=== PATIENT | male | born 1995 | race Caucasian/White ===

== ENCOUNTER 2017-03-15 19:03 | Inpatient (IN) | payer BC ==
[~2017-03-15] VITALS: Ht 180.3 cm; Wt 77.3 kg
[2017-03-15 19:05] VITALS: BP 143/72; PULSE 70; RESP 20; TEMP 98.9; O2SAT 100
[2017-03-15 19:15] VITALS: BP 132/60; PULSE 63; RESP 18; O2SAT 97
--- NOTE | 2017-03-15 19:20 | PD ---
HPI . took 10 baclofen to get high/now with nausea and vomiting Chief Complaint: GI Complaint Time Seen by Provider: 19:14 Travel History International Travel<30 days: No Contact w/Intl Traveler<30days: No Traveled to known affect area: No History of Present Illness HPI 21-year-old male with no significant past medical history here after ingesting about 10 baclofen pills in an attempt to get high. He developed some nausea and vomiting and was brought into the emergency department by his fiance. She tells me that initially around 4 PM when she returned home from work that he was lethargic. Now he is awake and alert and able to tell me that he took this and attempt to get high. He took 10 tabs of 10mg baclofen. He denies any suicide attempt. Denies any depression. Denies any homicidal ideation. He tells me the prescription was approximately 2 years old. PFSH Past Medical History Autoimmune Disease: Yes (alps) Social History Alcohol Use: Yes (occ) Tobacco Use: No Substance Use: No Allergies-Medications (Allergen,Severity, Reaction): Coded Allergies: No Known Allergies (Unverified , 03/15/17) Reported Meds & Prescriptions Reported Meds & Active Scripts Active No Active Prescriptions or Reported Medications Review of Systems General / Constitutional: No: Fever Eyes: No: Visual changes HENT: No: Headaches Cardiovascular: No: Chest Pain or Discomfort Respiratory: No: Shortness of Breath Gastrointestinal: Positive: Nausea, Vomiting, No: Abdominal Pain Genitourinary: No: Dysuria Musculoskeletal: No: Pain Skin: No Rash Neurologic: No: Weakness Psychiatric: No: Depression Endocrine: No: Polydipsia Hematologic/Lymphatic: No: Easy Bruising Physical Exam Narrative GENERAL: AAO x 3, no acute distress, Well-nourished, well-developed patient. SKIN: Warm and dry. No visible rashes or bruising. HEAD: Normocephalic and atraumatic. EYES: No scleral icterus. No injection or drainage. EOM intact, PERRLA, ENT: No nasal drainage noted. Mucous membranes pink. Airway patent. mild- moderate posterior pharynx erythema, NECK: Supple, trachea midline. No JVD. CARDIOVASCULAR: Regular rate and rhythm without murmurs, gallops, or rubs. RESPIRATORY: Breath sounds equal bilaterally. No accessory muscle use. No rhonchi or rales. GASTROINTESTINAL: Abdomen soft, non-tender, nondistended. EXTREMITIES: No cyanosis or edema. NEURO: CN 2 through 12 intact BACK: Nontender without obvious deformity. No CVA tenderness. PSYCH: AAO x 3, normal affect. Data Data Last Documented VS Vital Signs Date Time Temp Pulse Resp B/P Pulse Ox O2 Delivery O2 Flow Rate FiO2 03/15/17 19:44 62 18 130/77 100 Room Air 03/15/17 19:05 98.9 Orders Electrocardiogram (03/15/17 19:20) Complete Blood Count With Diff (03/15/17 19:20) Comprehensive Metabolic Panel (03/15/17 19:20) Prothrombin Time / Inr (Pt) (03/15/17 19:20) Act Partial Throm Time (Ptt) (03/15/17 19:20) Drug Screen, Random Urine (03/15/17 19:20) Alcohol (Ethanol) (03/15/17 19:20) Salicylates (Aspirin) (03/15/17 19:20) Tylenol (Acetaminophen) (03/15/17 19:20) Iv Access Insert/Monitor (03/15/17 19:24) Sodium Chlor 0.9% 1000 Ml Inj (Ns 1000 M (03/15/17 19:30) Ecg Monitoring (03/15/17 19:31) Bilateral Bp Monitoring (03/15/17 19:31) Oximetry (03/15/17 19:31) Labs Laboratory Tests Test 03/15/17 19:42 White Blood Count 12.3 TH/MM3 Red Blood Count 4.94 MIL/MM3 Hemoglobin 14.9 GM/DL Hematocrit 44.0 % Mean Corpuscular Volume 89.1 FL Mean Corpuscular Hemoglobin 30.1 PG Mean Corpuscular Hemoglobin 33.8 % Concent Red Cell Distribution Width 14.1 % Platelet Count 197 TH/MM3 Mean Platelet Volume 8.5 FL Neutrophils (%) (Auto) 89.0 % Lymphocytes (%) (Auto) 6.1 % Monocytes (%) (Auto) 4.7 % Eosinophils (%) (Auto) 0.1 % Basophils (%) (Auto) 0.1 % Neutrophils # (Auto) 11.0 TH/MM3 Lymphocytes # (Auto) 0.8 TH/MM3 Monocytes # (Auto) 0.6 TH/MM3 Eosinophils # (Auto) 0.0 TH/MM3 Basophils # (Auto) 0.0 TH/MM3 CBC Comment DIFF FINAL Differential Comment Prothrombin Time 11.4 SEC Prothromb Time International 1.0 RATIO Ratio Activated Partial 24.0 SEC Thromboplast Time Sodium Level 140 MEQ/L Potassium Level 4.3 MEQ/L Chloride Level 104 MEQ/L Carbon Dioxide Level 26.9 MEQ/L Anion Gap 9 MEQ/L Blood Urea Nitrogen 15 MG/DL Creatinine 1.02 MG/DL Estimat Glomerular Filtration 91 ML/MIN Rate Random Glucose 143 MG/DL Calcium Level 9.3 MG/DL Total Bilirubin 0.5 MG/DL Aspartate Amino Transf 25 U/L (AST/SGOT) Alanine Aminotransferase 28 U/L (ALT/SGPT) Alkaline Phosphatase 91 U/L Total Protein 8.6 GM/DL Albumin 4.8 GM/DL Salicylates Level 2.9 MG/DL Acetaminophen Level LESS THAN 2.0 MCG/ML Ethyl Alcohol Level LESS THAN 3 MG/DL MDM Medical Decision Making Medical Screen Exam Complete: Yes Emergency Medical Condition: Yes Medical Record Reviewed: Yes Differential Diagnosis drug overdose, substance abuse, Narrative Course 21 yr old male here after taking 10 tabs of baclofen in an attempt to get high. He is here because he had nausea and vomiting. He is accompanied by his fiance who reports he was very sleepy and lethargic, but now seems a little more alert. He is conversant and responds appropriately. Poison control states patient needs to be monitored for 6 hours after he is completely asymptomatic as he can go into respiratory distress. He will need to be transferred to ICU for close monitoring. Labs have been ordered. He is being monitored. 2020: patient in room, no distress, vitals are WNL Labs are still pending. I have discussed the case with Dr. Lake. 2037: Dr Lake discussed with Dr. Tapia. who has accepted the patient. He will be transferred to the ICU. Laboratory Tests Test 03/15/17 19:42 White Blood Count 12.3 TH/MM3 Red Blood Count 4.94 MIL/MM3 Hemoglobin 14.9 GM/DL Hematocrit 44.0 % Mean Corpuscular Volume 89.1 FL Mean Corpuscular Hemoglobin 30.1 PG Mean Corpuscular Hemoglobin 33.8 % Concent Red Cell Distribution Width 14.1 % Platelet Count 197 TH/MM3 Mean Platelet Volume 8.5 FL Neutrophils (%) (Auto) 89.0 % Lymphocytes (%) (Auto) 6.1 % Monocytes (%) (Auto) 4.7 % Eosinophils (%) (Auto) 0.1 % Basophils (%) (Auto) 0.1 % Neutrophils # (Auto) 11.0 TH/MM3 Lymphocytes # (Auto) 0.8 TH/MM3 Monocytes # (Auto) 0.6 TH/MM3 Eosinophils # (Auto) 0.0 TH/MM3 Basophils # (Auto) 0.0 TH/MM3 CBC Comment DIFF FINAL Differential Comment Prothrombin Time 11.4 SEC Prothromb Time International 1.0 RATIO Ratio Activated Partial 24.0 SEC Thromboplast Time Sodium Level 140 MEQ/L Potassium Level 4.3 MEQ/L Chloride Level 104 MEQ/L Carbon Dioxide Level 26.9 MEQ/L Anion Gap 9 MEQ/L Blood Urea Nitrogen 15 MG/DL Creatinine 1.02 MG/DL Estimat Glomerular Filtration 91 ML/MIN Rate Random Glucose 143 MG/DL Calcium Level 9.3 MG/DL Total Bilirubin 0.5 MG/DL Aspartate Amino Transf 25 U/L (AST/SGOT) Alanine Aminotransferase 28 U/L (ALT/SGPT) Alkaline Phosphatase 91 U/L Total Protein 8.6 GM/DL Albumin 4.8 GM/DL Salicylates Level 2.9 MG/DL Acetaminophen Level LESS THAN 2.0 MCG/ML Ethyl Alcohol Level LESS THAN 3 MG/DL Diagnosis Primary Impression: Drug overdose Qualified Code: T50.904A - Drug overdose, undetermined intent, initial encounter Admitting Information Admitting Physician Requests: Admit Scripts No Active Prescriptions or Reported Meds Condition: Stable Patrizia Bonilla March 15, 2017 19:20
[2017-03-15] MEDS ORDERED: SODIUM CHLOR 0.9% 1000 ML INJ 1,000 ML IV ONE (19:30)
[2017-03-15 19:44] VITALS: BP 130/77; PULSE 62; RESP 18; O2SAT 100
[2017-03-15 19:54] LABS: BASOPHIL % 0.1 % (0.0-2.0); EOSINOPHIL % 0.1 % (0.0-4.0); HEMO FLAGS DIFF FINAL; LYMPH % 6.1 % (9.0-44.0); LYMPHOCYTE # 0.8 TH/MM3 (1.0-4.8); MEAN CELL VOLUME 89.1 FL (80.0-100.0); MEAN CORPUSCULAR HEMOGLOBIN 30.1 PG (27.0-34.0); MEAN CORPUSCULAR HGB CONC 33.8 % (32.0-36.0); MONO % 4.7 % (0.0-8.0); PLATELET COUNT 197 TH/MM3 (150-450); RED BLOOD COUNT 4.94 MIL/MM3 (4.50-5.90); RED CELL DISTRIBUTION WIDTH 14.1 % (11.6-17.2); WHITE BLOOD COUNT 12.3 TH/MM3 (4.0-11.0)
[2017-03-15 20:11] LABS: PROTHROMBIN TIME - PATIENT 11.4 SEC (9.8-11.6)
[2017-03-15 20:19] LABS: ANION GAP 9 MEQ/L (5-15)
[2017-03-15 20:22] LABS: ALKALINE PHOSPHATASE 91 U/L (45-117); ALT (GPT) 28 U/L (12-78); AST (GOT) 25 U/L (15-37); BICARBONATE 26.9 MEQ/L (21.0-32.0); BLOOD UREA NITROGEN 15 MG/DL (7-18); CHLORIDE 104 MEQ/L (98-107); GLOMERULAR FILTRATION RATE 91 ML/MIN (>89); POTASSIUM 4.3 MEQ/L (3.5-5.1); SODIUM (NA) 140 MEQ/L (136-145); TOTAL BILIRUBIN ADULT 0.5 MG/DL (0.2-1.0)
[2017-03-15 20:29] LABS: ACETAMINOPHEN LESS THAN 2.0 MCG/ML (10.0-30.0)
--- NOTE | 2017-03-15 20:40 | PD ---
Data Data Last Documented VS Vital Signs Date Time Temp Pulse Resp B/P Pulse Ox O2 Delivery O2 Flow Rate FiO2 03/15/17 19:44 62 18 130/77 100 Room Air 03/15/17 19:05 98.9 Orders Electrocardiogram (03/15/17 19:20) Complete Blood Count With Diff (03/15/17 19:20) Comprehensive Metabolic Panel (03/15/17 19:20) Prothrombin Time / Inr (Pt) (03/15/17 19:20) Act Partial Throm Time (Ptt) (03/15/17 19:20) Drug Screen, Random Urine (03/15/17 19:20) Alcohol (Ethanol) (03/15/17 19:20) Salicylates (Aspirin) (03/15/17 19:20) Tylenol (Acetaminophen) (03/15/17 19:20) Iv Access Insert/Monitor (03/15/17 19:24) Sodium Chlor 0.9% 1000 Ml Inj (Ns 1000 M (03/15/17 19:30) Ecg Monitoring (03/15/17 19:31) Bilateral Bp Monitoring (03/15/17 19:31) Oximetry (03/15/17 19:31) Labs Laboratory Tests Test 03/15/17 19:42 White Blood Count 12.3 TH/MM3 Red Blood Count 4.94 MIL/MM3 Hemoglobin 14.9 GM/DL Hematocrit 44.0 % Mean Corpuscular Volume 89.1 FL Mean Corpuscular Hemoglobin 30.1 PG Mean Corpuscular Hemoglobin 33.8 % Concent Red Cell Distribution Width 14.1 % Platelet Count 197 TH/MM3 Mean Platelet Volume 8.5 FL Neutrophils (%) (Auto) 89.0 % Lymphocytes (%) (Auto) 6.1 % Monocytes (%) (Auto) 4.7 % Eosinophils (%) (Auto) 0.1 % Basophils (%) (Auto) 0.1 % Neutrophils # (Auto) 11.0 TH/MM3 Lymphocytes # (Auto) 0.8 TH/MM3 Monocytes # (Auto) 0.6 TH/MM3 Eosinophils # (Auto) 0.0 TH/MM3 Basophils # (Auto) 0.0 TH/MM3 CBC Comment DIFF FINAL Differential Comment Prothrombin Time 11.4 SEC Prothromb Time International 1.0 RATIO Ratio Activated Partial 24.0 SEC Thromboplast Time Sodium Level 140 MEQ/L Potassium Level 4.3 MEQ/L Chloride Level 104 MEQ/L Carbon Dioxide Level 26.9 MEQ/L Anion Gap 9 MEQ/L Blood Urea Nitrogen 15 MG/DL Creatinine 1.02 MG/DL Estimat Glomerular Filtration 91 ML/MIN Rate Random Glucose 143 MG/DL Calcium Level 9.3 MG/DL Total Bilirubin 0.5 MG/DL Aspartate Amino Transf 25 U/L (AST/SGOT) Alanine Aminotransferase 28 U/L (ALT/SGPT) Alkaline Phosphatase 91 U/L Total Protein 8.6 GM/DL Albumin 4.8 GM/DL Salicylates Level 2.9 MG/DL Acetaminophen Level LESS THAN 2.0 MCG/ML Ethyl Alcohol Level LESS THAN 3 MG/DL MDM Supervised Visit with HALLE: Yes Narrative Course I, Dr. Lake, have reviewed the advance practice practitioner's documentation and am in agreement, met with the patient face to face, made the diagnosis, and the medical decision making was done by me. See her note for further details. Briefly this is a 21-year-old male who is here by private vehicle after intentionally taking between 100 and 200 mg of baclofen and around 4:00 PM today. The patient reports that he took the medication because he wanted to get high. He denies suicidal ideation. He denies any coingestions. He states he feels tired. Poison control was contacted, and amongst checking usual overdose labs, they recommended observing the patient for 6 hours after the patient is completely asymptomatic. Labs reviewed. Tylenol and alcohol levels are negative. On exam the patient is snoring, as easily arousable, however midsentence the patient falls back asleep. Because of this he'll need to be admitted to a monitored setting. Case discussed with water valve repairer Dr. Tapia who will admit the patient to his service. Diagnosis Primary Impression: Drug overdose Qualified Code: T50.904A - Drug overdose, undetermined intent, initial encounter Scripts No Active Prescriptions or Reported Meds Condition: Dominick Brock MD March 15, 2017 20:40
[2017-03-15 20:46] VITALS: BP 117/58; PULSE 55; RESP 16; O2SAT 99
[2017-03-15] MEDS ORDERED: BISACODYL 10 MG SUPP RECTAL PRN (21:15)
[2017-03-15] MEDS ORDERED: SODIUM CHLORIDE 0.9% FLUSH 10 ML FLUSH PRN (21:15)
[2017-03-15] MEDS ORDERED: PROCHLORPERAZINE 25 MG SUPP RECTAL PRN (21:15)
[2017-03-15] MEDS ORDERED: METOCLOPRAMIDE HCL 10 MG/2 ML VIAL IV PRN (21:15)
[2017-03-15] MEDS ORDERED: CHLORHEXIDINE GLUCONATE 2 % 1 PACK (2 CLOTHS) TOP PRN (21:15)
[2017-03-15] MEDS ORDERED: RESP: ALBUTEROL 2.5 MG/IPRATROPIUM 0.5 MG NEB (PRN) INH (21:15)
[2017-03-15] MEDS ORDERED: MISCELLANEOUS NURSING INFORMATION XX SCH (21:15)
[2017-03-15] MEDS ORDERED: MAGNESIUM HYDROXIDE SUSP 30 ML CUP PO PRN (21:15)
[2017-03-15] MEDS ORDERED: ACETAMINOPHEN 325 MG TAB PO PRN (21:15)
[2017-03-15] MEDS ORDERED: LACTULOSE SYRUP 20 GM/30 ML CUP PO PRN (21:15)
[2017-03-15] MEDS ORDERED: SENNOSIDES 8.6 MG TAB PO PRN (21:15)
[2017-03-15] MEDS ORDERED: ONDANSETRON HCL 4 MG/2 ML VIAL IV PRN (21:15)
--- NOTE | 2017-03-15 21:23 | HHI.HP ---
HPI Service Critical Care Medicine Primary Care Physician No Primary Care Physician Admission Diagnosis drug overdose (baclofen) Diagnosis: Travel History International Travel<30 Days: No Contact w/Intl Traveler <30 Da: No Traveled to Known Affected Are: No History of Present Illness 21-year-old male who is here by private vehicle after intentionally taking between 100 and 200 mg of baclofen around 4:00 PM today. The patient reports that he took the medication because he wanted to get high. He denies suicidal ideation. He denies any coingestions. He states he feels tired. Poison control was contacted, and amongst checking usual overdose labs, they recommended observing the patient for 6 hours after the patient is completely asymptomatic. Review of Systems Constitutional: DENIES: Diaphoretic episodes, Fatigue, Fever, Weight gain, Weight loss, Chills, Dizziness, Change in appetite, Night Sweats Endocrine: DENIES: Heat/cold intolerance, Polydipsia, Polyuria, Polyphagia Eyes: DENIES: Blurred vision, Diplopia, Eye inflammation, Eye pain, Vision loss , Photosensitivity, Double Vision Ears, nose, mouth, throat: DENIES: Tinnitus, Hearing loss, Vertigo, Nasal discharge, Oral lesions, Throat pain, Hoarseness, Ear Pain, Running Nose, Epistaxis, Sinus Pain, Toothache, Odynophagia Respiratory: DENIES: Apneas, Cough, Snoring, Wheezing, Hemoptysis, Sputum production, Shortness of breath Cardiovascular: DENIES: Chest pain, Palpitations, Syncope, Dyspnea on Exertion , PND, Lower Extremity Edema, Orthopnea, Claudication Gastrointestinal: DENIES: Abdominal pain, Black stools, Bloody stools, Constipation, Diarrhea, Nausea, Vomiting, Difficulty Swallowing, Anorexia Genitourinary: DENIES: Sexual dysfunction, Urinary frequency, Urinary incontinence, Urgency, Hematuria, Dysuria, Nocturia, Penile Discharge, Testicular Pain, Testicular Swelling Musculoskeletal: DENIES: Joint pain, Muscle aches, Stiffness, Joint Swelling, Back pain, Neck pain Integumentary: DENIES: Abnormal pigmentation, Nail changes, Pruritus, Rash Hematologic/lymphatic: DENIES: Bruising, Lymphadenopathy Immunologic/allergic: DENIES: Eczema, Urticaria Neurologic: DENIES: Abnormal gait, Headache, Localized weakness, Paresthesias, Seizures, Speech Problems, Tremor, Poor Balance Psychiatric: DENIES: Anxiety, Confusion, Mood changes, Depression, Hallucinations, Agitation, Suicidal Ideation, Homicidal Ideation, Delusions Past Family Social History Allergies: Coded Allergies: No Known Allergies (Unverified , 03/15/17) Past Medical History Autoimmune lymphoproliferative syndrome Past Surgical History None Reported Medications Reported Meds & Active Scripts Active No Active Prescriptions or Reported Medications Active Ordered Medications Current Medications Medications (Trade) Dose Ordered Sig/[place] Route PRN Reason Start Time Stop Time Status Last Admin Dose Admin Sodium Chloride (NS 1000 ml Inj) 1,000 ml @ 125 mls/hr Q8H IV 03/15/17 21:14 UNV Sodium Chloride (NS Flush) 2 ml UNSCH PRN .XX FLUSH AFTER USING IV ACCESS 03/15/17 21:15 UNV Sodium Chloride (NS Flush) 2 ml BID .XX 03/16/17 09:00 UNV Acetaminophen (Tylenol) 650 mg Q6H PRN PO PAIN 1-10 AND/OR FEVER >101F 03/15/17 21:15 UNV Ondansetron HCl (Zofran Inj) 4 mg Q6H PRN IV NAUSEA OR VOMITING 03/15/17 21:15 UNV Metoclopramide HCl (Reglan Inj) 10 mg Q6H PRN IV NAUSEA OR VOMITING 03/15/17 21:15 UNV Prochlorperazine (Compazine Supp) 25 mg Q12H PRN RECTAL NAUSEA OR VOMITING 03/15/17 21:15 UNV Miscellaneous Information 1 [id number] XX 03/15/17 21:15 UNV Chlorhexidine Gluconate (Chlorhexidine 2% Cloth) 3 pack Taper DAILY@04 TOP 03/16/17 04:00 03/12/18 03:59 UNV Chlorhexidine Gluconate (Chlorhexidine 2% Cloth) 3 pack UNSCH PRN TOP HYGIENIC CARE 03/15/17 21:15 UNV Senna/Docusate Sodium (Isabella-Colace) 1 tab BID PO 03/16/17 09:00 UNV Magnesium Hydroxide (Milk Of Magnesia Liq) 30 ml Q12H PRN PO MILD - MODERATE CONSTIPATION 03/15/17 21:15 UNV Sennosides (Senokot) 17.2 mg Q12H PRN PO MODERATE - SEVERE CONSTIPATION 03/15/17 21:15 UNV Bisacodyl (Dulcolax Supp) 10 mg DAILY PRN RECTAL SEVERE CONSITIPATION 03/15/17 21:15 UNV Lactulose (Lactulose Liq) 30 ml DAILY PRN PO SEVERE CONSITIPATION 03/15/17 21:15 UNV Family History Noncontributory Social History Negative for alcohol smoking or illicit drug abuse Physical Exam Vital Signs Vital Signs Date Time Temp Pulse Resp B/P Pulse Ox O2 Delivery O2 Flow Rate FiO2 03/15/17 20:46 55 16 117/58 99 Room Air 03/15/17 19:44 62 18 130/77 100 Room Air 03/15/17 19:44 100 Room Air 03/15/17 19:15 63 18 132/60 97 Room Air 03/15/17 19:05 98.9 70 20 143/72 100 Room Air Physical Exam GENERAL: Well-nourished, well-developed patient. SKIN: Warm and dry. HEAD: Normocephalic. EYES: No scleral icterus. No injection or drainage. NECK: Supple, trachea midline. No JVD or lymphadenopathy. CARDIOVASCULAR: Regular rate and rhythm without murmurs, gallops, or rubs. RESPIRATORY: Breath sounds equal bilaterally. No accessory muscle use. GASTROINTESTINAL: Abdomen soft, non-tender, nondistended. MUSCULOSKELETAL: No cyanosis, or edema. BACK: Nontender without obvious deformity. No CVA tenderness. EXTREMITIES: No clubbing cyanosis or edema Laboratory Laboratory Tests Test 03/15/17 19:42 White Blood Count 12.3 Red Blood Count 4.94 Hemoglobin 14.9 Hematocrit 44.0 Mean Corpuscular Volume 89.1 Mean Corpuscular Hemoglobin 30.1 Mean Corpuscular Hemoglobin 33.8 Concent Red Cell Distribution Width 14.1 Platelet Count 197 Mean Platelet Volume 8.5 Neutrophils (%) (Auto) 89.0 Lymphocytes (%) (Auto) 6.1 Monocytes (%) (Auto) 4.7 Eosinophils (%) (Auto) 0.1 Basophils (%) (Auto) 0.1 Neutrophils # (Auto) 11.0 Lymphocytes # (Auto) 0.8 Monocytes # (Auto) 0.6 Eosinophils # (Auto) 0.0 Basophils # (Auto) 0.0 CBC Comment DIFF FINAL Differential Comment Prothrombin Time 11.4 Prothromb Time International 1.0 Ratio Activated Partial 24.0 Thromboplast Time Sodium Level 140 Potassium Level 4.3 Chloride Level 104 Carbon Dioxide Level 26.9 Anion Gap 9 Blood Urea Nitrogen 15 Creatinine 1.02 Estimat Glomerular Filtration 91 Rate Random Glucose 143 Calcium Level 9.3 Total Bilirubin 0.5 Aspartate Amino Transf 25 (AST/SGOT) Alanine Aminotransferase 28 (ALT/SGPT) Alkaline Phosphatase 91 Total Protein 8.6 Albumin 4.8 Salicylates Level 2.9 Acetaminophen Level LESS THAN 2.0 Ethyl Alcohol Level LESS THAN 3 Result Diagram: 03/15/17194103/15/171941 Assessment and Plan Assessment and Plan Baclofen overdose - Admit to ICU - Neuro checks per unit protocol - Monitor for brain edema symptoms - Monitor series of labs - Poison Control Center appreciated - IV fluids DVT GI prophylaxis - Early aggressive mobilization, regular diet Critical Care: The total critical care time was 35 minutes. Time to perform other separately billable procedures was not included in the critical care time. Wilbert Tapia MD March 15, 2017 21:23
[2017-03-15 21:58] VITALS: BP 132/74; PULSE 76; RESP 20; TEMP 97.9; O2SAT 99
[2017-03-15 22:00] VITALS: PULSE 65
[2017-03-15] MEDS: SODIUM CHLOR 0.9% 1000 ML INJ 1,000 ML IV SCH (22:00)
[2017-03-16] VITALS: BP 116/59; PULSE 56; RESP 18; TEMP 96.8
[2017-03-16 02:00] VITALS: PULSE 53
[2017-03-16 04:00] VITALS: BP 101/60; PULSE 48; PULSE 64; RESP 20; TEMP 97.2; O2SAT 100
[2017-03-16] MEDS ORDERED: CHLORHEXIDINE GLUCONATE 2 % 1 PACK (2 CLOTHS) TOP SCH (04:00)
--- NOTE | 2017-03-16 05:47 | HHI.DS ---
Discharge Summary Admission Date March 15, 2017 at 20:40 Admitting Diagnosis drug overdose (baclofen) CBC/BMP: 03/15/17194103/15/171941 Significant Findings Laboratory Tests Test 03/15/17 19:42 White Blood Count 12.3 TH/MM3 (4.0-11.0) Neutrophils (%) (Auto) 89.0 % (16.0-70.0) Lymphocytes (%) (Auto) 6.1 % (9.0-44.0) Neutrophils # (Auto) 11.0 TH/MM3 (1.8-7.7) Lymphocytes # (Auto) 0.8 TH/MM3 (1.0-4.8) Activated Partial 24.0 SEC Thromboplast Time (24.3-30.1) Random Glucose 143 MG/DL (74-106) Total Protein 8.6 GM/DL (6.4-8.2) Acetaminophen Level LESS THAN 2.0 MCG/ML (10.0-30.0) PE at Discharge GENERAL: Well-nourished, well-developed patient.Alert, awake, Ox 3 SKIN: Warm and dry. HEAD: Normocephalic. EYES: No scleral icterus. No injection or drainage. NECK: Supple, trachea midline. No JVD or lymphadenopathy. CARDIOVASCULAR: Regular rate and rhythm without murmurs, gallops, or rubs. RESPIRATORY: Breath sounds equal bilaterally. No accessory muscle use. GASTROINTESTINAL: Abdomen soft, non-tender, nondistended. MUSCULOSKELETAL: No cyanosis, or edema. BACK: Nontender without obvious deformity. No CVA tenderness. EXTREMITIES: No clubbing, cyanosis or edema Hospital Course Patient is a 21-year-old gentleman who was admitted for baclofen overdose. He denies any suicidal intentions. He took medications because he was brought and he wanted to feel high. Per Poison Control Center recommendations patient was observed for more than 6 hours after he was found to be neurologically intact. All his labs were within normal limits. He is alert awake and oriented 3 in no acute distress neurologically intact. He is stable and medically optimized for discharge to home. Pt Condition on Discharge: Stable Discharge Instructions DIET: Follow Instructions for: As Tolerated, No Restrictions Speech Therapy-Diet Recommenda: Regular Activities you can perform: Regular-No Restrictions Medication Profile: No Active Prescriptions or Reported Meds Wilbert Tapia MD March 16, 2017 05:47
[2017-03-16 05:54] LABS: AUTOMATED NEUTROPHIL # 6.4 TH/MM3 (1.8-7.7); BASOPHIL % 0.1 % (0.0-2.0); EOSINOPHIL % 0.1 % (0.0-4.0); HEMATOCRIT 41.1 % (39.0-51.0); HEMO FLAGS DIFF FINAL; LYMPH % 16.5 % (9.0-44.0); LYMPHOCYTE # 1.4 TH/MM3 (1.0-4.8); MEAN CELL VOLUME 89.6 FL (80.0-100.0); MEAN CORPUSCULAR HEMOGLOBIN 30.3 PG (27.0-34.0); MEAN CORPUSCULAR HGB CONC 33.9 % (32.0-36.0); NEUT % 75.3 % (16.0-70.0); PLATELET COUNT 203 TH/MM3 (150-450); RED BLOOD COUNT 4.59 MIL/MM3 (4.50-5.90); RED CELL DISTRIBUTION WIDTH 14.1 % (11.6-17.2); WHITE BLOOD COUNT 8.5 TH/MM3 (4.0-11.0)
[2017-03-16 06:00] VITALS: PULSE 61
[2017-03-16] MEDS: SODIUM CHLOR 0.9% 1000 ML INJ 1,000 ML IV SCH (06:00)
[2017-03-16 06:17] LABS: ANION GAP 8 MEQ/L (5-15); BICARBONATE 27.6 MEQ/L (21.0-32.0); BLOOD UREA NITROGEN 10 MG/DL (7-18); CHLORIDE 107 MEQ/L (98-107); GLOMERULAR FILTRATION RATE 129 ML/MIN (>89); MAGNESIUM 2.2 MG/DL (1.5-2.5); POTASSIUM 3.9 MEQ/L (3.5-5.1); SODIUM (NA) 143 MEQ/L (136-145)
[2017-03-16 06:19] LABS: ALKALINE PHOSPHATASE 74 U/L (45-117); ALT (GPT) 20 U/L (12-78); AST (GOT) 17 U/L (15-37); TOTAL BILIRUBIN ADULT 0.4 MG/DL (0.2-1.0)
--- NOTE | 2017-03-16 08:17 | EKG ---
Date Performed: 03/15/2017 Time Performed: 19:35:58 PTAGE: 21 years EKG: SINUS BRADYCARDIA NONSPECIFIC INTRAVENTRICULAR CONDUCTION DELAY EARLY REPOLARIZATION ABNORM AL ECG NO PREVIOUS TRACING DOCTOR: Carlos Wang Interpretating Date/Time 03/16/2017 08:17:17
[2017-03-16] MEDS ORDERED: SODIUM CHLORIDE 0.9% FLUSH 10 ML FLUSH SCH (09:00)
[2017-03-16] MEDS ORDERED: DOCUSATE SODIUM 50 MG/SENNA 8.6 MG TAB PO SCH (09:00)
== END 2017-03-16 06:27 | disposition home or self-care (01) | DRG 918 ==
LOC: NEPD 19:03 → NEDA 20:40 → HIME 21:55
PROVIDERS: ADMIT Hospitalist; ATTEND Hospitalist
DX: T42.8X1A Poisoning by antiparkinsonism drugs and other central muscle-tone depressants, accidental (unintentional), initial encounter (principal); D89.82 Autoimmune lymphoproliferative syndrome [ALPS]; R11.2 Nausea with vomiting, unspecified
CPT/HCPCS: 80053; 80307; 83735; 84100; 85025; 85610; 85730; 87641; 93005; 99285; J7030